=== PATIENT | male | born 1960 | race Caucasian/White ===

== ENCOUNTER → 2024-03-06 07:15 | Outpatient (REF) | payer BC, SELFPAY | LOC: RAD 07:15 | PROVIDERS: ATTENDING PHYSICIAN Internal Medicine Cardiovascular Disease; FAMILY PHYSICIAN Family Medicine; REFERRING PHYSICIAN Internal Medicine Critical Care Medicine | DX: Z72.0 Tobacco use (principal); F17.210 Nicotine dependence, cigarettes, uncomplicated | CPT/HCPCS: 71271; 76770 ==

== ENCOUNTER → 2025-01-31 06:29 | Outpatient (REF) | payer BC, SELFPAY ==
[2025-01-31 07:45] LABS: INR 1.64; PT 19.6 Sec (11.4-14.6)
== END ==
LOC: REG 06:29
PROVIDERS: ATTENDING PHYSICIAN Internal Medicine Cardiovascular Disease; FAMILY PHYSICIAN Family Medicine
DX: Z95.2 Presence of prosthetic heart valve (principal); Z79.01 Long term (current) use of anticoagulants
CPT/HCPCS: 36415; 85610

== ENCOUNTER → 2025-02-04 06:24 | Outpatient (REF) | payer BC, SELFPAY ==
[2025-02-04 08:07] LABS: INR 1.37; PT 17.1 Sec (11.4-14.6)
== END ==
LOC: REG 06:24
PROVIDERS: ATTENDING PHYSICIAN Internal Medicine Cardiovascular Disease; FAMILY PHYSICIAN Family Medicine
DX: Z95.2 Presence of prosthetic heart valve (principal); Z51.81 Encounter for therapeutic drug level monitoring; Z79.01 Long term (current) use of anticoagulants
CPT/HCPCS: 36415; 85610

== ENCOUNTER → 2025-02-10 06:35 | Outpatient (REF) | payer BC, SELFPAY ==
[2025-02-10 07:35] LABS: INR 2.07; PT 23.4 Sec (11.4-14.6)
== END ==
LOC: REG 06:35
PROVIDERS: ATTENDING PHYSICIAN Internal Medicine Cardiovascular Disease; FAMILY PHYSICIAN Family Medicine
DX: Z95.2 Presence of prosthetic heart valve (principal); Z79.01 Long term (current) use of anticoagulants
CPT/HCPCS: 36415; 85610

== ENCOUNTER → 2025-02-28 06:33 | Outpatient (REF) | payer BC, SELFPAY ==
[2025-02-28 07:20] LABS: INR 3.88; PT 38.3 Sec (11.4-14.6)
== END ==
LOC: REG 06:33
PROVIDERS: ATTENDING PHYSICIAN Internal Medicine Cardiovascular Disease; FAMILY PHYSICIAN Family Medicine
DX: Z95.2 Presence of prosthetic heart valve (principal); I48.0 Paroxysmal atrial fibrillation; Z79.01 Long term (current) use of anticoagulants
CPT/HCPCS: 36415; 85610

== ENCOUNTER → 2025-03-15 09:26 | Outpatient (REF) | payer BC, SELFPAY ==
[2025-03-15 10:22] LABS: INR 3.24; PT 32.9 Sec (11.4-14.6)
== END ==
LOC: RAD 09:26
PROVIDERS: ATTENDING PHYSICIAN Internal Medicine Critical Care Medicine; FAMILY PHYSICIAN Family Medicine; REFERRING PHYSICIAN Internal Medicine Cardiovascular Disease
DX: Z87.891 Personal history of nicotine dependence (principal); J44.9 Chronic obstructive pulmonary disease, unspecified; Z95.2 Presence of prosthetic heart valve; Z79.01 Long term (current) use of anticoagulants
CPT/HCPCS: 36415; 71271; 85610

== ENCOUNTER → 2025-03-29 07:17 | Outpatient (REF) | payer BC, SELFPAY ==
[2025-03-29 08:03] LABS: INR 2.67; PT 28.4 Sec (11.4-14.6)
== END ==
LOC: REG 07:17
PROVIDERS: ATTENDING PHYSICIAN Internal Medicine Cardiovascular Disease; FAMILY PHYSICIAN Family Medicine
DX: Z95.2 Presence of prosthetic heart valve (principal); Z79.01 Long term (current) use of anticoagulants
CPT/HCPCS: 36415; 85610

== ENCOUNTER → 2025-04-30 09:20 | Outpatient (REF) | payer BC, SELFPAY ==
[2025-04-30 10:57] LABS: INR 3.40; PT 34.7 Sec (11.4-14.6)
== END ==
LOC: REG 09:20
PROVIDERS: ATTENDING PHYSICIAN Internal Medicine Cardiovascular Disease
DX: Z95.2 Presence of prosthetic heart valve (principal); Z79.01 Long term (current) use of anticoagulants
CPT/HCPCS: 36415; 85610

== ENCOUNTER → 2025-05-24 07:46 | Outpatient (REF) | payer BC, SELFPAY ==
[2025-05-24 08:53] LABS: INR 4.39; PT 42.3 Sec (11.4-14.6)
== END ==
LOC: REG 07:46
PROVIDERS: ATTENDING PHYSICIAN Internal Medicine Cardiovascular Disease; FAMILY PHYSICIAN Family Medicine
DX: Z95.2 Presence of prosthetic heart valve (principal); Z79.01 Long term (current) use of anticoagulants
CPT/HCPCS: 36415; 85610